=== PATIENT | female | born 1965 | race Caucasian/White ===

== ENCOUNTER 2024-01-27 11:43 | Emergency (ER) | payer OTHER, SELFPAY ==
--- NOTE | ~2024-01-27 | XR_ITS ---
EXAMINATION: XR ankle LT min 3V DATE: 01/27/2024 12:44 INDICATION: Lateral left ankle pain. Left ankle swelling and redness. TECHNIQUE: 4 views of left ankle were obtained. COMPARISON: None. FINDINGS: Bone alignment is normal. No fracture. Joint spaces are normal. There is an enthesophyte at posterior aspect of calcaneal tuberosity. Ankle soft tissue swelling is noted. IMPRESSION: 1. No fracture. Reviewed, dictated and finalized at location A. IMPRESSION: 1. No fracture.
[2024-01-27 12:03] VITALS: BP 130/80; PULSE 81; RESP 18; TEMP 36.6; O2SAT 98
--- NOTE | 2024-01-27 12:35 | ED.EXTPRO ---
HPI - Extremity Problem General Chief complaint: Extremity Problem,Nontraumatic Stated complaint: Left Foot Swelling Source: patient Mode of arrival: ambulatory Limitations: no limitations History of Present Illness HPI Narrative: Patient presents for evaluation of left ankle pain and swelling for the last 2 days. No recent injury or identified precipitating cause. She states pain is constant and throbbing. She states pain is worse in the morning and improves as the day goes on and she starts moving. Upon waking for the day her pain is 10/10 in severity. As she begins ambulating her pain decreases to 6/10. She is not taking any medication to assist with her symptoms. No history of gout but her son recently had gout. No known history of autoimmune disease. Related Data Home Medications Medication Instructions Recorded Confirmed apixaban 2.5 mg tablet (Eliquis) 2.5 mg PO BID 01/27/24 01/27/24 aripiprazole 10 mg tablet 10 mg PO DAILY 01/27/24 01/27/24 atorvastatin 40 mg tablet 40 mg PO DAILY 01/27/24 01/27/24 carvedilol 25 mg tablet 25 mg PO DAILY 01/27/24 01/27/24 cetirizine 10 mg tablet 10 mg PO DAILY 01/27/24 01/27/24 cholecalciferol (vitamin D3) 25 50 mcg PO DAILY 01/27/24 01/27/24 mcg (1,000 unit) tablet clonazepam 0.5 mg tablet 0.5 mg PO DAILY PRN Anxiety 01/27/24 01/27/24 furosemide 40 mg tablet 40 mg PO DAILY 01/27/24 01/27/24 omeprazole 40 mg capsule,delayed 40 mg PO DAILY 01/27/24 01/27/24 release solifenacin 10 mg tablet 10 mg PO DAILY 01/27/24 01/27/24 spironolactone 25 mg tablet 25 mg PO DAILY 01/27/24 01/27/24 Allergies Allergy/AdvReac Type Severity Reaction Status Date / Time No Known Allergies Allergy Unverified 01/27/24 12:06 Review of Systems Review of Systems: CONSTITUTIONAL: Denies fever, chills, or sweats. EYES: Denies visual changes, redness, or discharge. ENT: Denies rhinorrhea, congestion, sore throat, or otalgia. CARDIOVASCULAR: Denies chest pain, palpitations, or edema. RESPIRATORY: Denies cough or dyspnea. GASTROINTESTINAL: Denies abdominal pain, nausea, vomiting, or diarrhea. GENITOURINARY: Denies dysuria or hematuria. SKIN: Denies rash or itching. MUSCULOSKELETAL: Reports left ankle pain and swelling. NEUROLOGIC: Denies headache, numbness, dizziness, or weakness. PSYCHIATRIC: Denies anxiety or depression. PMFSH Past Medical History Medical History No pertinent past medical history Surgical History Surgical History No pertinent past surgical history Family History Family History Mother Unknown family medical history Social History Social History Substance use: never Gender identity (if verbalized by the patient): Female Exam Narrative: GENERAL: Well-appearing, well-nourished, and in no acute distress. HEAD: Normocephalic, atraumatic. EYES: PERRLA and EOMI. ENT: Nares clear, no rhinorrhea or epistaxis. Mucous membranes moist. Oropharynx without tonsillar hypertrophy exudate or other lesions. Bilateral TMs pearly farley nonbulging NECK: Supple. No adenopathy or masses. No carotid bruits or JVD CHEST: Clear to auscultation. No respiratory distress. No wheezes rales or rhonchi HEART: Regular rate and rhythm. No murmur heard. Normal peripheral pulses. ABDOMEN: Soft, nontender, nondistended, normal active bowel sounds. EXTREMITIES: Able to dorsi and plantar flex the left foot. There is swelling and tenderness over the lateral malleolus of the left ankle SKIN: Warm, dry, no rash. NEURO: No focal deficits. Alert and oriented x3. PSYCH: Normal mood and affect. Course Course Emergency Course: This is a 59-year-old female who presented for evaluation of left ankle pain. X-ray was negative for fracture. Clinically I norris
== END 2024-01-27 13:15 | disposition home or self-care (01) ==
PROVIDERS: Emergency Provider Nurse Practitioner; PCP Nurse Practitioner Family
DX: M25.572 Pain in left ankle and joints of left foot (principal); Z79.01 Long term (current) use of anticoagulants
CPT/HCPCS: 73610; 99213; G0463